=== PATIENT | female | born 1970 | race Caucasian/White ===

== ENCOUNTER 2023-10-25 18:24 | Emergency (ER) | payer OTHER, SELFPAY ==
--- NOTE | ~2023-10-25 | XR_ITS ---
EXAMINATION: XR CHEST CLINICAL INFORMATION: Chest pain COMPARISON: None available. TECHNIQUE: Frontal view of the chest was obtained. FINDINGS: No significant abnormality is noted involving the heart, lungs, mediastinum, bony thorax or soft tissues. XR/XR chest 1V IMPRESSION: Unremarkable chest examination.
--- NOTE | 2023-10-25 18:26 | ECG_ITS ---
Test Reason : abd pain Blood Pressure : / mmHG Vent. Rate : 057 BPM Atrial Rate : 057 BPM P-R Int : 134 ms QRS Dur : 086 ms QT Int : 426 ms P-R-T Axes : 032 026 044 degrees QTc Int : 414 ms Sinus bradycardia Otherwise normal ECG No previous ECGs available Referred By: Jluio Sanchez Electronically Signed By:BRANT ROMERO
--- NOTE | 2023-10-25 18:27 | ED_ITS ---
HPI - General Adult General Chief complaint: Abdominal Pain Stated complaint: left side pain urgent care told patient to come Time Seen by Provider: 10/25/23 22:57 Source: patient, RN notes reviewed and old records reviewed Mode of arrival: ambulatory Limitations: no limitations History of Present Illness HPI narrative: 52-year-old female presents for evaluation abdominal pain. Patient reports she has had abdominal pain on and off for the last few days. The pain is worse with eating. The pain radiates up into her chest She is status post cholecystectomy and gastric bypass She denies any other history abdominal surgeries pain Denies any fevers, chills She continues to pass flatus Currently she has no pain Related Data Allergies Allergy/AdvReac Type Severity Reaction Status Date / Time cefaclor [From [facility]] Allergy Rash Verified 10/25/23 18:37 Sulfa (Sulfonamide Allergy Unknown Verified 10/25/23 18:37 Antibiotics) Review of Systems 2 Constitutional: Constitutional: Denies chills and Denies fever(s) Cardiovascular: Cardiovascular: Reports chest pain Respiratory: Respiratory: Denies cough Gastrointestinal: Gastrointestinal: Reports abdominal pain, Denies nausea and Denies vomiting Genitourinary: Genitourinary: Denies dysmenorrhea Musculoskeletal: Musculoskeletal: Denies back pain Integumentary/Breasts: Skin/Breast: Denies rash PMFSH Social History Social History Advance Directives: No Advance Directives Information Provided: No Physical Exam ED Vital Signs: Vital Signs - 24 hr 10/25/23 18:38 10/25/23 22:06 Temperature 97.7 F 97.7 F Pulse Rate 56 67 Respiratory Rate 18 18 Blood Pressure 151/67 H 155/66 H Pulse Oximetry 99 100 Oxygen Delivery Method Room Air Room Air BMI result Body Mass Index 29.5 Const General: healthy appearing, comfortable, no acute distress, alert and awake Nutritional Appearance: well nourished Orientation/consciousness: patient oriented x3 HENMT Head: Yes normocephalic and Yes atraumatic Eyes Eyelids: Yes eyelids normal Conjunctivae: conjunctivae normal Sclerae: sclerae normal Corneas: corneas normal Pupils: Equal, round and reactive pupils present EOM: EOMs intact bilaterally Neck Neck: Yes full ROM Resp Effort & Inspection: normal respiratory effort, able to speak in complete sentences and not labored GI Inspection: No distended Palpation (GI): Soft to palpation, not firm, nontender, no guarding and not rigid Auscultation: normoactive bowel sounds Skin General skin exam: no rashes or lesions noted and elasticity normal Neuro General: patient oriented x3 Cranial nerves: Yes Equal, round and reactive pupils present and Yes Bilaterally intact EOM present Cognition (Neuro): normal cognition Extrem Other: Moving all extremities well without any obvious deformities Course Course Course Narrative: This is an RME: Additional HPI, ROS, PE not included below will be deferred to primary provider. 52 year old female presents from [facility] MD urgent care w/ L sided cp x 3 days. NO sob, cough, fevers, chills, nausea, vomiting, abd pain Plan- labs, ekg Medical Decision Making Medical Decision Making MDM Narrative: 52-year-old female presents for evaluation abdominal pain worse after eating. She is already status post cholecystectomy and gastric bypass. I have no concern for small bowel obstruction she continues to pass gas. Her abdominal exam is reassuring, she has no current tenderness or distention. She had a chest x-ray does not show any evidence of a hiatal hernia. History, exam are most consistent with GERD/gastritis. The patient be referred to GI as well as General surgery given her history of gastric bypass Differential Diagnosis Differential Diagnoses: The differential diagnosis associated with the presentation includes GERD Gastritis Hiatal hernia Peptic ulcer disease Small bowel obstruction less likely Lab Data [facility] Lab Attestation statement: I reviewed the patient's lab results. No leukocytosis or anemia. No significant electrolyte abnormalities. Patient is chloride is elevated to 109, just above normal. BUN is 21 with a creatinine of 0.90. LFTs within normal limits 10/25/23 19:01 10/25/23 19:01 Labs: Lab Results 10/25/23 10/25/23 Range/Units 19:00 19:01 WBC 6.2 (4.8-10.8) X10*3/uL RBC 4.04 L (4.20-5.50) X10*6/uL Hgb 13.3 (12.0-16.0) g/dl Hct 38.9 (37.0-47.0) % MCV 96.3 (80.0-98.0) fL MCH 32.9 (27.0-33.0) pg MCHC 34.2 (31.0-35.0) g/dl RDW 12.0 (11.0-16.0) % Plt Count 204 (160-400) X10*3/uL MPV 10.3 (9.4-12.3) fL Immature Gran % (Auto) 0.3 (0.0-0.4) % Neut % (Auto) 76.4 H (45-73) % Lymph % (Auto) 17.8 L (20-40) % [place] % (Auto) 4.2 (2-11) % Eos % (Auto) 0.5 (0-4) % Baso % (Auto) 0.8 (0-2) % Lymph # (Auto) 1.1 L (1.2-4.9) X10*3/uL [place] # (Auto) 0.3 (0.1-1.2) X10*3/uL Eos # (Auto) 0.0 (0.0-0.4) X10*3/uL Baso # (Auto) 0.1 (0.0-0.2) X10*3/uL Abs Immat Gran (auto) 0.02 (0.00-0.03) X10*3/uL Absolute Neuts (auto) 4.7 (2.0-8.3) x10*3/uL Absolute Nucleated RBC 0.000 (0.0-0.012) X10*3/uL Nucleated RBC % (auto) 0.0 (0.0-0.2) /100WBC PT 12.3 (11.1-13.3) SEC INR 1.0 (0.9-1.1) Sodium 142 (135-145) mmol/L Potassium 3.6 (3.3-5.1) mmol/L Chloride 109 H (96-108) mmol/L Carbon Dioxide 23 (22-29) mmol/L Anion Gap 14 (12-20) BUN 21 H (9-16) mg/dL Creatinine 0.90 (0.5-1.4) mg/dL Estim Creat Clear Calc 73.0 Estimated GFR > 60 Random Glucose 94 (60-115) mg/dL Calcium 9.6 (8.4-10.2) mg/dL Magnesium 2.2 (1.6-2.6) mg/dL Total Bilirubin 0.4 (0.0-1.0) mg/dL AST 30 (5-31) U/L ALT 28 (0-31) U/L Alkaline Phosphatase 63 (39-117) U/L Troponin I High Sens < 2.7 (<3.5-17.0) ng/L Total Protein 7.0 (6.5-8.0) g/dL Albumin 4.4 (3.5-5.0) g/dL Lipase 31 (8-78) U/L Urine Color Yellow Urine Appearance Clear Urine pH 5.5 (5.0-9.0) Ur Specific [place] 1.015 (1.005-1.025) Urine Protein Negative (Neg-Trace) mg/dL Urine Glucose (UA) Negative (Negative) mg/dL Urine Ketones Trace (Negative) mg/dL Urine Blood Trace H (Negative) Urine Nitrite Negative (Negative) Ur Leukocyte Esterase Negative (Negative) Urine RBC 0-2 (0-2) /HPF Urine WBC 0-5 (0-5) /HPF Ur Squamous Epith Cells 0-2 (0-2) /HPF Urine Bacteria None Seen (None Seen) Hyaline Casts 0-2 (0-2) /LPF Discharge Plan Discharge Clinical Impression: Abdominal pain Patient Disposition: Home, Self-Care Instructions: Abdominal Pain (ED) Additional Instructions: Your workup in the ER today was reassuring. Your blood work did not show any significant abnormalities. Your x-ray did not show any large hiatal hernia I recommend that you follow-up with both GI and General surgery given your history of gastric bypass Referrals are attached, I recommend you call in the morning to schedule follow- up appointments Referrals: Jeffrey Simpson MD [Physician] - (abdominal pain after eating. Hx gastric bypass) Devon Bradshaw MD [Physician] - (upper abdominal pain after eating) Interventions: ED Discharge Assessment Last Done: 10/25/23 23:32 Discharge Date/Time: 10/25/23 23:32
[2023-10-25 18:38] VITALS: BP 151/67; PULSE 56; RESP 18; TEMP 36.5; O2SAT 99; BMI 29.5
[2023-10-25 19:06] LABS: MANUAL DIFF FLAG NO
--- NOTE | 2023-10-25 19:07 | MHC.EDTECH ---
PATIENT EKG TAKEN AND WAS READ BY PROVIDER ,BLOOD DRAWN AND URINE SAMPLE COLLECTED AND SENT TO LAB .
[2023-10-25 19:08] LABS: Basophils Absolute Auto 0.1 X10*3/uL (0.0-0.2); Basophils Percent Auto 0.8 % (0-2); Eosinophils Percent Auto 0.5 % (0-4); Hematocrit 38.9 % (37.0-47.0); Hemoglobin 13.3 g/dl (12.0-16.0); Imm Gran Abs Auto 0.02 X10*3/uL (0.00-0.03); Imm Gran Pct Auto 0.3 % (0.0-0.4); Lymphocytes Absolute Auto 1.1 X10*3/uL (1.2-4.9); Lymphocytes Percent Auto 17.8 % (20-40); Mean Corpuscular HGB Conc 34.2 g/dl (31.0-35.0); Mean Corpuscular Hemoglobin 32.9 pg (27.0-33.0); Mean Corpuscular Volume 96.3 fL (80.0-98.0); Mean Platelet Volume 10.3 fL (9.4-12.3); Monocytes Absolute Auto 0.3 X10*3/uL (0.1-1.2); Monocytes Percent Auto 4.2 % (2-11); Neutrophils Absolute Auto 4.7 x10*3/uL (2.0-8.3); Neutrophils Percent Auto 76.4 % (45-73); Platelet Count 204 X10*3/uL (160-400); Red Blood Count 4.04 X10*6/uL (4.20-5.50); White Blood Count 6.2 X10*3/uL (4.8-10.8)
[2023-10-25 19:09] LABS: Appearance Urine Clear; Color Urine Yellow; Glucose Urine UA Negative (Negative); Leukocyte Esterase Urine Negative (Negative); Nitrite Urine Negative (Negative); PH 5.5 (5.0-9.0); Specific Gravity - Urine 1.015 (1.005-1.025); UMIC TRIGGER UACC YES; Urine Blood Trace (Negative); Urine Ketones Trace mg/dL (Negative); Urine Protein Negative (Neg-Trace)
[2023-10-25 19:14] LABS: Bacteria Urine None Seen (None Seen); Hyaline Casts Urine 0-2 /LPF (0-2); Prothrombin Time 12.3 SEC (11.1-13.3); RBC Urine 0-2 /HPF (0-2); Squamous Epithelial Cell Urine 0-2 /HPF (0-2); WBC Urine 0-5 /HPF (0-5)
[2023-10-25 19:30] LABS: Alanine Aminotransferase 28 U/L (0-31); Albumin Level 4.4 g/dL (3.5-5.0); Alkaline Phosphatase 63 U/L (39-117); Anion Gap 14 (12-20); Aspartate Amino Transferase 30 U/L (5-31); Bilirubin Total 0.4 mg/dL (0.0-1.0); Blood Urea Nitrogen 21 mg/dL (9-16); Calcium 9.6 mg/dL (8.4-10.2); Carbon Dioxide 23 mmol/L (22-29); Chloride 109 mmol/L (96-108); Estimated Glomerular Filt Rate > 60; Glucose Random 94 mg/dL (60-115); Magnesium 2.2 mg/dL (1.6-2.6); Potassium 3.6 mmol/L (3.3-5.1); Sodium 142 mmol/L (135-145)
[2023-10-25 19:41] LABS: Troponin-I High Sensitivity < 2.7 ng/L (<3.5-17.0)
[2023-10-25 22:06] VITALS: BP 155/66; PULSE 67; RESP 18; TEMP 36.5; O2SAT 100
[2023-10-25 23:24] LABS: Lipase 31 U/L (8-78)
== END 2023-10-25 23:32 | disposition home or self-care (01) ==
PROVIDERS: Physician Assistant; Emergency Provider Internal Medicine; PCP Internal Medicine
DX: R10.9 Unspecified abdominal pain (principal); R07.89 Other chest pain; R00.1 Bradycardia, unspecified; Z98.84 Bariatric surgery status; Z79.899 Other long term (current) drug therapy
CPT/HCPCS: 36415; 71045; 80053; 81001; 83690; 83735; 84484; 85025; 85610; 93005; 99283

== ENCOUNTER → 2023-10-25 18:26 | Outpatient (BNV) | payer OTHER, SELFPAY | PROVIDERS: Emergency Provider Internal Medicine; PCP Internal Medicine; Visit Provider Internal Medicine | DX: R00.1 Bradycardia, unspecified (principal) | CPT/HCPCS: 93010 ==

== ENCOUNTER 2023-11-09 17:58 | Emergency (ER) | payer OTHER, SELFPAY ==
--- NOTE | ~2023-11-09 | XR_ITS ---
EXAMINATION: XR CHEST CLINICAL INFORMATION: Unable to take a full breath. COMPARISON: Chest radiograph 10/25/2023. TECHNIQUE: Frontal view of the chest was obtained. FINDINGS: Normal appearance of the cardiomediastinal silhouette. No focal airspace opacities, pleural effusion or pneumothorax. No acute osseous findings. Visualized upper abdomen is within normal limits. XR/XR chest 1V IMPRESSION: No acute cardiopulmonary findings.
[2023-11-09 18:32] VITALS: BP 147/78; PULSE 61; RESP 18; TEMP 36.6; O2SAT 98; BMI 29.8
--- NOTE | 2023-11-09 18:35 | ECG_ITS ---
Test Reason : UPPER ABD PAIN Blood Pressure : / mmHG Vent. Rate : 051 BPM Atrial Rate : 051 BPM P-R Int : 132 ms QRS Dur : 084 ms QT Int : 428 ms P-R-T Axes : 038 030 042 degrees QTc Int : 394 ms Sinus bradycardia Otherwise normal ECG When compared with ECG of 25-OCT-2023 18:50, No significant change was found Referred By: Generic ED Physician Electronically Signed By:AVNI MORAES MD
--- NOTE | 2023-11-09 18:48 | ED_ITS ---
HPI - General Adult General Chief complaint: Abdominal Pain Stated complaint: upper abd pain/can't take a deep breath Time Seen by Provider: 11/09/23 23:02 Source: patient Mode of arrival: ambulatory Limitations: no limitations History of Present Illness HPI narrative: A 52-year-old female s/p gastric bypass came in for evaluation of epigastric pain and unable to take a deep breath. Patient was seen and evaluated in the emergency department 3 weeks ago for epigastric pain that has been constant for the past 3 weeks patient is scheduled to have upper endoscopy by Dr. Simspon in the next 2 weeks, patient was concerned today because she was not able to take a full breath, but no SOB, no coughing, no fever, chills. No lower extremity swelling or tenderness, no history of DVT or PE. Related Data Allergies Allergy/AdvReac Type Severity Reaction Status Date / Time cefaclor [From Ceclor] Allergy Rash Verified 10/25/23 18:37 Sulfa (Sulfonamide Allergy Unknown Verified 10/25/23 18:37 Antibiotics) Review of Systems 2 Review of Systems: All other systems are reviewed and are negative Constitutional: Reports as per HPI and Reports no additional constitutional complaints Eyes: Reports as per HPI and Reports no additional eye complaints Reports system reviewed and no additional complaints, except as documented Cardiovascular: Reports as per HPI and Reports no additional cardiovascular complaints Respiratory: Reports as per HPI and Reports no additional respiratory complaints Gastrointestinal: Reports as per HPI and Reports no additional gastrointestinal complaints Genitourinary: Reports no additional female genitourinary complaints Musculoskeletal: Reports no additional musculoskeletal complaints Skin/Breast: Reports system reviewed and no additional complaints, except as docu Psychiatric: Reports no additional psychiatric complaints Endocrine: Reports no additional endocrine complaints Hematologic/Lymphatic: Reports no additional hematologic/lymphatic complaints Allergic/Immunologic: Reports no additional allergic/immunologic complaints Reports system reviewed and no additional complaints, except as documented and Reports Abnormal speech present [facility] Social History Social History Smoked in Last 30 Days: No Use of substances other than those prescribed or required for medical reasons: No Advance Directives: No Advance Directives Information Provided: No Patient : No Physical Exam ED Vital Signs: Vital Signs - 24 hr 11/09/23 18:32 11/09/23 23:15 11/10/23 00:00 Temperature 97.8 F Pulse Rate 61 61 62 Respiratory Rate 18 18 18 Blood Pressure 147/78 H 159/67 H 162/62 H Pulse Oximetry 98 100 98 Oxygen Delivery Method Room Air Room Air 11/10/23 00:45 Temperature Pulse Rate 61 Respiratory Rate 18 Blood Pressure 147/66 H Pulse Oximetry 100 Oxygen Delivery Method BMI result Body Mass Index 29.8 Vital signs have been reviewed and appear to be correct. Blood pressure elevated. Heart rate normal. Respiratory rate normal. Temperature normal. Oxygen saturation normal. Appearance: Alert. Oriented X3. No acute distress. Head: Normal external exam. Normocephalic. Atraumatic. No Castro signs noted. No raccoon eyes noted Eyes: PERRLA. EOMI. Conjunctiva and sclera normal. Eyelids normal. ENT: TM's Normal. Pharynx normal. Uvula midline. Moist mucous membranes. No trismus noted. No drooling noted. No muffled voice noted. Neck: Normal inspection. Neck supple. FROM. No adenopathy. Thyroid Normal. No meningeal signs. No neck mass noted. CVS: Normal heart rate and rhythm. Heart sound normal. No murmurs noted. Pulses normal throughout. Respiratory: No respiratory distress. Painless inspiration. Breath sounds normal. No wheezes/rales/rhonchi noted. Chest nontender. No accessory muscle usage noted or decreased air movement noted. Abdomen: Soft and nontender. Bowel sounds normal in all 4 quadrants. No distention noted. No organomegaly noted. No visible injury noted. Back: No CVA tenderness. Full range of motion noted. Skin: Skin warm and dry. Normal skin color. Normal skin turgor. No rashes/lesions/lacerations noted. Extremities: No lower extremity edema. Extremities exhibit normal range of motion. Extremities nontender. Neuro: Oriented X 3. Cranial nerve exam: II-XII are grossly intact No motor deficit. No sensory deficit. Reflexes normal. Course Course Course Narrative: [place]; 52-year-old female presents to ED for epigastric abdominal pain for the past 3 weeks described as pressure. Patient has endoscopic due in 2 weeks. Patient history of gastric bypass. Not reproducible on palpation. EKG labs ordered. Reevaluation(s) Reevaluation #1: Came in today for evaluation of unable to take a full breath that this resolved now patient was VSS, no risk for DVT or PE with negative D-dimer. Patient's exam is unremarkable patient was instructed to follow-up with Dr. Simpson for her upper endoscopy that is scheduled in 2 weeks. Time: 23:44 Medical Decision Making Differential Diagnosis Differential Diagnoses: The differential diagnosis associated with the presentation includes (Pulmonary embolism, pneumonia, pneumothorax, pleural effusion, electrolyte abnormality, severe anemia.) Admission/Observation Consideration of admission/observation: Escalation of care including admission/observation considered Lab Data MDM Lab Attestation statement: I reviewed the patient's lab results. 11/09/23 18:45 11/09/23 18:45 Labs: Lab Results 11/09/23 11/09/23 Range/Units 18:45 19:48 WBC 5.4 (4.8-10.8) X10*3/uL RBC 4.00 L (4.20-5.50) X10*6/uL Hgb 13.3 (12.0-16.0) g/dl Hct 38.2 (37.0-47.0) % MCV 95.5 (80.0-98.0) fL MCH 33.3 H (27.0-33.0) pg MCHC 34.8 (31.0-35.0) g/dl RDW 11.9 (11.0-16.0) % Plt Count 214 (160-400) X10*3/uL MPV 10.2 (9.4-12.3) fL Immature Gran % (Auto) 0.2 (0.0-0.4) % Neut % (Auto) 70.4 (45-73) % Lymph % (Auto) 20.4 (20-40) % [place] % (Auto) 7.6 (2-11) % Eos % (Auto) 0.7 (0-4) % Baso % (Auto) 0.7 (0-2) % Lymph # (Auto) 1.1 L (1.2-4.9) X10*3/uL [place] # (Auto) 0.4 (0.1-1.2) X10*3/uL Eos # (Auto) 0.0 (0.0-0.4) X10*3/uL Baso # (Auto) 0.0 (0.0-0.2) X10*3/uL Abs Immat Gran (auto) 0.01 (0.00-0.03) X10*3/uL Absolute Neuts (auto) 3.8 (2.0-8.3) x10*3/uL Absolute Nucleated RBC 0.000 (0.0-0.012) X10*3/uL Nucleated RBC % (auto) 0.0 (0.0-0.2) /100WBC PT 12.2 (11.1-13.3) SEC INR 1.0 (0.9-1.1) APTT 31.1 (26.0-36.8) SEC D-Dimer High Sensitivty < 150 NG/ML Sodium 144 (135-145) mmol/L Potassium 3.5 (3.3-5.1) mmol/L Chloride 110 H (96-108) mmol/L Carbon Dioxide 24 (22-29) mmol/L Anion Gap 14 (12-20) BUN 20 H (9-16) mg/dL Creatinine 0.91 (0.5-1.4) mg/dL Estim Creat Clear Calc 70.0 Estimated GFR > 60 Random Glucose 107 (60-115) mg/dL Calcium 9.6 (8.4-10.2) mg/dL Total Bilirubin 0.5 (0.0-1.0) mg/dL Direct Bilirubin 0.2 (0.0-0.5) mg/dL AST 24 (5-31) U/L ALT 20 (0-31) U/L Alkaline Phosphatase 54 (39-117) U/L Troponin I High Sens < 2.7 (<3.5-17.0) ng/L Total Protein 7.0 (6.5-8.0) g/dL Albumin 4.4 (3.5-5.0) g/dL Lipase 32 (8-78) U/L Independent Interpretation I performed an independent interpretation of an: Plain X-Ray (Chest: No acute intrathoracic pathology.) Discharge Plan Discharge Clinical Impression: Abdominal pain Patient Disposition: Home, Self-Care Instructions: Abdominal Pain (ED) Referrals: Abhilash Welsh MD [Primary Care Provider] - Interventions: ED Discharge Assessment Last Done: 11/10/23 00:46 Discharge Date/Time: 11/10/23 00:46
[2023-11-09 18:51] LABS: MANUAL DIFF FLAG NO
[2023-11-09 19:13] LABS: Alanine Aminotransferase 20 U/L (0-31); Albumin Level 4.4 g/dL (3.5-5.0); Alkaline Phosphatase 54 U/L (39-117); Anion Gap 14 (12-20); Aspartate Amino Transferase 24 U/L (5-31); Bilirubin Direct 0.2 mg/dL (0.0-0.5); Bilirubin Total 0.5 mg/dL (0.0-1.0); Blood Urea Nitrogen 20 mg/dL (9-16); Calcium 9.6 mg/dL (8.4-10.2); Carbon Dioxide 24 mmol/L (22-29); Chloride 110 mmol/L (96-108); Estimated Glomerular Filt Rate > 60; Glucose Random 107 mg/dL (60-115); Lipase 32 U/L (8-78); Potassium 3.5 mmol/L (3.3-5.1); Sodium 144 mmol/L (135-145)
[2023-11-09 19:21] LABS: Basophils Percent Auto 0.7 % (0-2); Eosinophils Percent Auto 0.7 % (0-4); Hematocrit 38.2 % (37.0-47.0); Hemoglobin 13.3 g/dl (12.0-16.0); Imm Gran Abs Auto 0.01 X10*3/uL (0.00-0.03); Imm Gran Pct Auto 0.2 % (0.0-0.4); Lymphocytes Absolute Auto 1.1 X10*3/uL (1.2-4.9); Lymphocytes Percent Auto 20.4 % (20-40); Mean Corpuscular HGB Conc 34.8 g/dl (31.0-35.0); Mean Corpuscular Hemoglobin 33.3 pg (27.0-33.0); Mean Corpuscular Volume 95.5 fL (80.0-98.0); Mean Platelet Volume 10.2 fL (9.4-12.3); Monocytes Absolute Auto 0.4 X10*3/uL (0.1-1.2); Monocytes Percent Auto 7.6 % (2-11); Neutrophils Absolute Auto 3.8 x10*3/uL (2.0-8.3); Neutrophils Percent Auto 70.4 % (45-73); Platelet Count 214 X10*3/uL (160-400); Red Cell Distribution Width 11.9 % (11.0-16.0); White Blood Count 5.4 X10*3/uL (4.8-10.8)
[2023-11-09 19:38] LABS: Troponin-I High Sensitivity < 2.7 ng/L (<3.5-17.0)
[2023-11-09 20:10] LABS: Prothrombin Time 12.2 SEC (11.1-13.3)
[2023-11-09 20:12] LABS: Partial Thromboplastin Time 31.1 SEC (26.0-36.8)
--- OUTSIDE RECORDS SUMMARY | 2023-11-09 23:07 | XMS_ITS | Continuity of Care Document ---
Author Name Unknown Organization [facility] ter Address [address] [place] [address]- Care Team Providers Care Director Of Product Marketing Name Role Phone Abhilash Welsh MD Primary Care Physician Encounter [facility] [place] Date(s): 09/18/19 - 09/18/[address] [address]- [facility] Attending Physician: Linda Camejo MD Allergies, Adverse Reactions, Alerts Substance Reaction Severity Status sulfADIAZINE Rash Moderate Active sulfa drugs UNKNOWN REACTION Active Ceclor Rash Moderate Active Medications Vitamin D 400 iu oral tablet 400, International_Units, 1, tablet, By Mouth, 2 times a day, 120, tablet, 7, 7, 07/09/06 12:22:20,Print THO Number, ADS OPPTHS, [id number]+[id number], Constant Indicator Start Date: 07/09/06 Stop Date: 11/01/07 Status: Ordered
--- OUTSIDE RECORDS SUMMARY | 2023-11-09 23:07 | XMS_ITS | Continuity of Care Document ---
Author Name Unknown Organization [facility] ter Address [address] [place] [address]- Care Team Providers Care Php Website Developer Name Role Phone Abhilash Welsh MD Primary Care Physician Encounter [facility] [place] Date(s): 09/01/23 - 09/02/[address] [address]- Discharge Disposition: A-D/C Walkout Attending Physician: Not on Staff, Attending MD Admitting Physician: Not on Staff, Admitting MD Referring Physician: Not on Staff, Referring MD Allergies, Adverse Reactions, Alerts Substance Reaction Severity Status sulfADIAZINE Rash Moderate Active sulfa drugs UNKNOWN REACTION Active Ceclor Rash Moderate Active Medications Vitamin D 400 iu oral tablet 400, International_Units, 1, tablet, By Mouth, 2 times a day, 120, tablet, 7, 7, 07/09/06 12:22:20,Print THO Number, ADS OPPTHS, [id number], Constant Indicator Start Date: 07/09/06 Stop Date: 11/01/07 Status: Ordered Vital Signs Most recent to oldest [Reference Range]: 1 2 3 Height 163 cm (09/01/23 9:01 PM) Weight 77.5 kg (09/01/23 9:01 PM) Oxygen Saturation [94-100 %] 100 % (09/01/23 9:01 PM) 98 % (09/01/23 7:42 PM) Pulse Rate [55-90 bpm] 55 bpm (09/02/23 1:23 AM) 59 bpm (09/01/23 9:01 PM) 76 bpm (09/01/23 7:42 PM) Body Mass Index [18.5-24.99 kg/m2] 29.17 kg/m2 *H* (09/01/23 9:01 PM) Blood Pressure [90-138/55-84 mm Hg] 139/81mm Hg *H* (09/02/23 1:23 AM) 147/85mm Hg *H* (09/01/23 9:01 PM) Temperature [96.8-100.4 DegF] 97.7 DegF (09/02/23 1:23 AM) 97.8 DegF (09/01/23 9:01 PM) Mode of Delivery (Oxygen) Room air (09/01/23 9:01 PM) Room air (09/01/23 7:42 PM) Blood pressure sites Arm, left (09/02/23 1:23 AM) Arm, left (09/01/23 9:01 PM) Temperature Route Oral (09/02/23 1:23 AM) Oral (09/01/23 9:01 PM) Dry Weight 77.5 kg (09/01/23 9:01 PM) Weight Obtained Via Standing scale (09/01/23 9:01 PM) Dry Weight Obtained Via Standing scale (09/01/23 9:01 PM) EKG study * Event Display: ECG 12-Lead Authored Date: Please click on pdf link to open report * Event Display: ECG 12-Lead Authored Date: Ventricular Rate: 57 BPM Atrial Rate: 57 BPM P-R Interval: 110 ms QRS Duration: 68 ms Q-T Interval: 412 ms QTC Calculation(Bazett): 401 ms P [place]: 10 degrees R [place]: 25 degrees T [place]: 42 degrees Sinus bradycardia Otherwise normal ECG When compared with ECG of 15-JAN-2023 09:04, No significant change was found Confirmed by LORI SUNG ([id number]) on 09/02/2023 8:22:58 AM [place]: LORI SUNG Patient Care team information Care Team Personnel Name: Abhilash Welsh MD Position: S Physician - Primary Care Member Role: PCP Address: Address: [address] [place] [address] Care Team Related Persons Name: RENAN ESPOSITO Name: WHITNEY ENGLAND Address: [address] [place] [address] Name: DANIEL ENGLAND Address: [address] [place] [address]
--- OUTSIDE RECORDS SUMMARY | 2023-11-09 23:07 | XMS_ITS | Continuity of Care Document ---
Author Name Unknown Organization [facility] Address [address] [place] [address], [address] [place] [address]- Care Team Providers Care Physician Obstetrician Name Role Phone Abhilash Welsh MD Primary Care Physician Encounter [facility] [place] Date(s): 10/14/23 - 10/21/[address], [address] [place], [place] [address] Attending Physician: Yari Moraes MD Referring Physician: Abhilash Welsh MD Allergies, Adverse Reactions, Alerts Substance Reaction Severity Status sulfADIAZINE Rash Moderate Active sulfa drugs UNKNOWN REACTION Active Ceclor Rash Moderate Active Medications Flonase = 50 mcg, Daily, 0 Refills, Maintenance, 10/14/23 15:05:00 EST, Partial fill upon patient request if the prescription is for a schedule II opioid drug. Start Date: 10/14/23 Status: Ordered Vitamin D 400 iu oral tablet 400, International_Units, 1, tablet, By Mouth, 2 times a day, 120, tablet, 7, 7, 07/09/06 12:22:20,Print THO Number, ADS OPPTHS, [id number]+[id number], Constant Indicator Start Date: 07/09/06 Stop Date: 11/01/07 Status: Ordered Vital Signs Most recent to oldest [Reference Range]: 1 Height 163 cm (10/14/23 3:02 PM) Weight 77.5 kg (10/14/23 3:02 PM) Body Mass Index [18.5-24.99 kg/m2] 29.17 kg/m2 *H* (10/14/23 3:02 PM) Laboratory * Event Display: Non BH Lab Results Authored Date: Radiology * Event Display: MRI Head, Non- BH Authored Date: * Event Display: MRI Head, Non- BH Authored Date: [id number] Patient Care team information Care Team Personnel Name: Abhilash Welsh MD Position: [facility] Physician - Primary Care Member Role: PCP Address: Address: [address] [place] [address] Care Team Related Persons Name: RENAN ESPOSITO Name: WHITNEY ENGLAND Address: [address] [place] [address] Name: DANIEL ENGLAND Address: [address] [place] [address]
--- OUTSIDE RECORDS SUMMARY | 2023-11-09 23:07 | XMS_ITS | Patient Health Record ---
Author Name Unknown [facility] Address [address] [place] [address] Care Team Providers Care Dock Manager Name Role Phone Abhilash Welsh MD Primary Care Provider UnavailTeresa Holt Unavailable [phone] ALLERGIES Allergen (clinical drug ingredient) Drug/Non Drug Allergy documented on EMR Reaction Allergy Type Onset Date Status sulfamethoxazole / trimethoprim Bactrim Unknown Drug Allergy Active cefuroxime Ceftin rash Drug Allergy Active cefaclor Cefaclor rash Drug Allergy Active REASON FOR REFERRAL No Information MEDICATIONS Medication SIG (Take, Route, Fr equency, Duration) Notes Start Date End Date Status calcium Active Multivitamin Adult - as directed Orally Active Antihistamine Active Iron 325 (65 Fe) MG 1 tablet Orally Once a day for 30 day(s) Active Vitamin D 1000 UNIT 1 tablet Orally Once a day for 30 day(s) Active SOCIAL HISTORY Tobacco Use: Social History Observation Description Date Details (start date - stop date) Never Smoker NA - NA Sex Assigned At : Social History Observation Description Sex Assigned At Unknown Tobacco Use/Smoking Question Answer Notes Are you a: nonsmoker Additional Findings: Tobacco Non-User Current no n-smoker Alcohol Screen Question Answer Notes Did you have a drink containing alcohol in the p ast year? Yes Points 0 Interpretation Negative Tobacco use other than smoking: Question Answer Notes Are you an other tobacco user? No PROBLEMS Problem Type ICD Code Onset Dates Problem Status W/U Status Risk SNOMED Code Notes Problem Plantar neuroma of right foot (G57.61) Active confirmed 108503572 PLAN OF TREATMENT Pending Test Test Name Order Date X ray : Foot, right 3V 10/30/2020 X ray : Foot, right 3V 02/17/2019 [id number] TENDON SHEATH/LIGAMENT 0 11/27/2020 [id number], [id number]- Neuroma/Injection 03/10/20 19 Insurance Providers Payer Name Payer Address Payer Phone Subscriber Number Group Number Insured Name Patient Relationship to Insured Coverage Start Date Coverage End Date [employer] [address] [place] [address] [id number] Sheryl Barajas Self - patient is the insured 9 MEDICAL (GENERAL) HISTORY Medical History History ICD Code Gall bladder problems Chicken pox Surgical History Surgery Date(Month/Year) gastric bypass 05/2004 cholecystectomy 05/2004 lasik 08/2005 bunionectomy 02/2014 tonsillectomy 1976 colonoscopy 09/08
--- OUTSIDE RECORDS SUMMARY | 2023-11-09 23:07 | XMS_ITS | Continuity of Care Document ---
Author Name Unknown Organization [facility] ter Address [address] [place] [id number]- Care Team Providers Care Feather Baler Name Role Phone Abhilash Welsh MD Primary Care Physician Encounter [facility] Date(s): 01/15/23 - 01/15/[address] [address]- Encounter Diagnosis Breast pain(Final) - 01/15/23 Discharge Disposition: A-D/C Home Attending Physician: Ismael Ayala MD Admitting Physician: Ismael Ayala MD Referring Physician: Not on Staff, Referring MD Allergies, Adverse Reactions, Alerts Substance Reaction Severity Status sulfADIAZINE Rash Moderate Active sulfa drugs UNKNOWN REACTION Active Ceclor Rash Moderate Active Medications Vitamin D 400 iu oral tablet 400, International_Units, 1, tablet, By Mouth, 2 times a day, 120, tablet, 7, 7, 07/09/06 12:22:20,Print THO Number, ADS OPPTHS, [id number], Constant Indicator Start Date: 07/09/06 Stop Date: 11/01/07 Status: Ordered Results Radiology Reports * Exam Date Time Procedure Performing Provider Status 01/15/23 11:48 AM US Doppler Ext Upper Venous Right Jourdan Emery; Auth (Verified) Notes: (US Doppler Ext Upper Venous Right) Reason For Exam: Pain in limb;Other: RESULT: US Doppler Ext Upper Venous Right US Doppler Ext Upper Venous Right Hx of Present Illness: 2 weeks [employer] burning pain R breast radiating under L arm. Patient seen by PCP; Pain in limb; Clinical Question(s): Thrombosis COMPARISON: None. IMAGING TECHNIQUE: Ultrasound examination of the upper extremity deep venous system was performed using grayscale, color, and spectral wave analysis including response to compression. Assessment includes the contralateral jugular and subclavian vein. FINDINGS: Internal jugular vein: Patent. No thrombosis. Subclavian vein: Patent. No thrombosis. Axillary vein: Patent. No thrombosis. Brachial vein: Patent. No thrombosis. Basilic vein: Patent. No thrombosis. Cephalic vein: Patent. No thrombosis. Contralateral internal jugular vein: Patent. No thrombosis. Contralateral subclavian vein: Patent. No thrombosis. IMPRESSION: No evidence of venous thrombosis. WSN: [id number] Ordering Physician: Jerry Berrios Dictated By: Gregory Hodges MD Dictated Date/Time: 01/15/23 12:05 p Reviewed By: Gregory Hodges MD Signed By: Gregory Hodges MD Signed Date/Time: 01/15/23 12:05 pm Transcribed By: DIEGO Transcribed Date/Time: 01/15/23 12:04 pm * Exam Date Time Procedure Performing Provider Status 01/15/23 11:03 AM Chest Portable Cira De Santiago; Auth (Verified) Notes: (Chest Portable) Reason For Exam: Shortness of Breath RESULT: Chest Portable Chest Portable HX OF PRESENT ILLNESS: 2 weeks burning pain R breast radiating under L arm; Reason: Shortness of Breath; Clinical Question(s): CHF COMPARISON: None. FINDINGS: LINES AND TUBES: None. LUNGS AND PLEURA: Clear lungs. Normal pulmonary vascularity. No pleural effusion. No pneumothorax. HEART, MEDIASTINUM AND TRAMAINE: Heart is normal in size. Normal mediastinal and hilar contour. BONES AND SOFT TISSUES: No acute abnormality. IMPRESSION: No acute abnormality. I have personally reviewed the images and I agree with this report. WSN: [id number] Ordering Physician: Jerry Berrios Dictated By: Nereida Escalona DO Dictated Date/Time: 01/15/23 11:27 a Reviewed By: Partha Moore MD Signed By: Partha Moore MD Signed Date/Time: 01/15/23 11:32 am Transcribed By: DIEGO Transcribed Date/Time: 01/15/23 11:12 am Vital Signs Most recent to oldest [Reference Range]: 1 2 3 Height 163 cm (01/15/23 12:02 PM) 163 cm (01/15/23 8:14 AM) Weight 78 kg (01/15/23 12:02 PM) 78 kg (01/15/23 8:14 AM) Oxygen Saturation [94-100 %] 100 % (01/15/23 12:02 PM) 100 % (01/15/23 10:18 AM) 100 % (01/15/23 8:44 AM) Pulse Rate [55-90 bpm] 59 bpm (01/15/23 12:02 PM) 67 bpm (01/15/23 10:18 AM) 69 bpm (01/15/23 8:44 AM) Body Mass Index [18.5-24.99 kg/m2] 29.36 kg/m2 *H* (01/15/23 12:02 PM) Blood Pressure [90-138/55-84 mm Hg] 119/56mm Hg (01/15/23 12:02 PM) 117/63mm Hg (01/15/23 10:18 AM) 150/72mm Hg *H* (01/15/23 8:44 AM) Respiratory Rate [16-30 br/min] 16 br/min (01/15/23 12:02 PM) 16 br/min (01/15/23 10:18 AM) 16 br/min (01/15/23 8:44 AM) Temperature [96.8-100.4 DegF] 98.1 DegF (01/15/23 12:02 PM) 97.6 DegF (01/15/23 8:44 AM) 98.2 DegF (01/15/23 8:14 AM) Mode of Delivery (Oxygen) Room air (01/15/23 12:02 PM) Room air (01/15/23 10:18 AM) Room air (01/15/23 8:44 AM) Blood pressure sites Arm, left (01/15/23 12:02 PM) Arm, left (01/15/23 10:18 AM) Arm, left (01/15/23 8:44 AM) Temperature Route Oral (01/15/23 12:02 PM) Oral (01/15/23 8:44 AM) Oral (01/15/23 8:14 AM) Dry Weight 78 kg (01/15/23 12:02 PM) 78 kg (01/15/23 8:14 AM) EKG study * Event Display: ECG 12-Lead Authored Date: Please click on pdf link to open report * Event Display: ECG 12-Lead Authored Date: Ventricular Rate: 57 BPM Atrial Rate: 57 BPM P-R Interval: 124 ms QRS Duration: 88 ms Q-T Interval: 412 ms QTC Calculation(Bazett): 401 ms P [place]: 6 degrees R [place]: 40 degrees T [place]: 40 degrees Sinus bradycardia Otherwise normal ECG When compared with ECG of 22-MAY-2004 14:11, No significant change was found Confirmed by CHERYL MCLAUGHLIN ([id number]) on 01/15/2023 10:13:30 AM [place]: CHERYL MCLAUGHLIN * Event Display: EKG Authored Date: [id number] Portable XR Chest Views * [facility] , CIS S: TRANSCPartha Carrillo MD: VERIFY Nerieda Escalona DO: SIGN Event Display: Result: Authored Date: [id number] Chest Portable HX OF PRESENT ILLNESS: 2 weeks burning pain R breast radiating under L arm; Reason: Shortness of Breath; Clinical Question(s): CHF COMPARISON: None. FINDINGS: LINES AND TUBES: None. LUNGS AND PLEURA: Clear lungs. Normal pulmonary vascularity. No pleural effusion. No pneumothorax. HEART, MEDIASTINUM AND TRAMAINE: Heart is normal in size. Normal mediastinal and hilar contour. BONES AND SOFT TISSUES: No acute abnormality. IMPRESSION: No acute abnormality. I have personally reviewed the images and I agree with this report. WSN: [id number] Ordering Physician: Jerry Berrios Dictated By: Nereida Escalona DO Dictated Date/Time: 01/15/23 11:27 a Reviewed By: Partha Moore MD Signed By: Partha Moore MD Signed Date/Time: 01/15/23 11:32 am Transcribed By: DIEGO Transcribed Date/Time: 01/15/23 11:12 am Note * [facility] , CIS S: Gregory Negron MD: VERIFY Event Display: Result: Authored Date: [id number] US Doppler Ext Upper Venous Right Hx of Present Illness: 2 weeks [employer] burning pain R breast radiating under L arm. Patient seen by PCP; Pain in limb; Clinical Question(s): Thrombosis COMPARISON: None. IMAGING TECHNIQUE: Ultrasound examination of the upper extremity deep venous system was performed using grayscale, color, and spectral wave analysis including response to compression. Assessment includes the contralateral jugular and subclavian vein. FINDINGS: Internal jugular vein: Patent. No thrombosis. Subclavian vein: Patent. No thrombosis. Axillary vein: Patent. No thrombosis. Brachial vein: Patent. No thrombosis. Basilic vein: Patent. No thrombosis. Cephalic vein: Patent. No thrombosis. Contralateral internal jugular vein: Patent. No thrombosis. Contralateral subclavian vein: Patent. No thrombosis. IMPRESSION: No evidence of venous thrombosis. WSN: [id number] Ordering Physician: Jerry Berrios Dictated By: Gregory Hodges MD Dictated Date/Time: 01/15/23 12:05 p Reviewed By: Gregory Hodges MD Signed By: Gregory Hodges MD Signed Date/Time: 01/15/23 12:05 pm Transcribed By: DIEGO Transcribed Date/Time: 01/15/23 12:04 pm Patient Care team information Care Team Personnel Name: Abhilash Welsh MD Position: [facility] Physician (General Medicine) Member Role: PCP Address: Address: [address] [place] [id number] [[email or web address]] Name: Lashae Del Toro Position: [facility] ED RN W/OE and Tasks Member Role: Patient Care Provider Name: Ismael Ayala MD Position: [facility] ED Medicine MD Member Role: Admitting Physician Address: Address: [address] [place] [id number]- Name: Jerry Berrios DO Position: [facility] Resident Member Role: ED Resident Address: Address: [address] [place] [id number]- Name: Radha Moreno Position: [facility] ED [facility] Member Role: Financial Administrator Care Team Related Persons Name: RENAN ESPOSITO Name: LASHAE ENGLAND Address: [address] [place] [address] Name: DANIEL ENGLAND Address: [address] [place] [address]
[2023-11-09 23:15] VITALS: BP 159/67; PULSE 61; RESP 18; O2SAT 100
[2023-11-09 23:46] LABS: D Dimer High Sensitivity < 150 NG/ML
[2023-11-10] VITALS: BP 162/62; PULSE 62; RESP 18; O2SAT 98
[2023-11-10 00:45] VITALS: BP 147/66; PULSE 61; RESP 18; O2SAT 100
== END 2023-11-10 00:46 | disposition home or self-care (01) ==
PROVIDERS: Physician Assistant; Emergency Provider Emergency Medicine; PCP Internal Medicine
DX: R10.13 Epigastric pain (principal); R06.02 Shortness of breath; R00.1 Bradycardia, unspecified; Z98.84 Bariatric surgery status; Z79.899 Other long term (current) drug therapy
CPT/HCPCS: 36415; 71045; 80053; 82248; 83690; 84484; 85025; 85379; 85610; 85730; 93005; 99284; 99285

== ENCOUNTER → 2023-11-09 18:35 | Outpatient (BNV) | payer OTHER, SELFPAY | PROVIDERS: Emergency Provider Emergency Medicine; PCP Internal Medicine; Visit Provider Internal Medicine Cardiovascular Disease | DX: R00.1 Bradycardia, unspecified (principal) | CPT/HCPCS: 93010 ==

== ENCOUNTER 2023-11-17 06:04 | Day surgery (SDC) | payer OTHER, SELFPAY ==
--- NOTE | 2023-11-16 09:51 | P.CONAN_ITS ---
Documented by User: Zoya Ricardo NP 11/16/23 09:55 HPI - Anesthesia Eval Consult details Narrative: 52yo F for Upper Endoscopy No bariatric office visit/eval. No medical hx provided by bariatric office. Per ED notes, hx of gastric sleeve at other facility, unknown date. [facility] Surgical History Surgical History Hx of LASIK History of bunionectomy History of cholecystectomy History of tonsillectomy Hx of gastric bypass Social History Social History Patient Tobacco Use Status: Never used Tobacco Use of substances other than those prescribed or required for medical reasons: No Are you DNR?: No Advance Directives: No Advance Directives Information Provided: Yes Meds Allergies Allergy/AdvReac Type Severity Reaction Status Date / Time cefaclor [From Ceclor] Allergy Rash Verified 10/25/23 18:37 Sulfa (Sulfonamide Allergy Unknown Verified 10/25/23 18:37 Antibiotics) Exam Pertinent Lab Results Pertinent Lab Results: Laboratory Tests 11/09/23 18:45 WBC 5.4 Hgb 13.3 Hct 38.2 Plt Count 214 Sodium 144 Potassium 3.5 Chloride 110 H Carbon Dioxide 24 BUN 20 H Creatinine 0.91 Assessment and Plan Assessment Anesthesia Assessment: Chart Reviewed Documented by User: Rhonda Eldridge MD 11/17/23 08:03 HPI - Anesthesia Eval Consult details Narrative: 52yo F for Upper Endoscopy No bariatric office visit/eval. No medical hx provided by bariatric office. Hx of sleeve gastrectomy at another facility about 12 years ago. C/o epigastric pain. [facility] Active Problems Active Problems: Denies cardiac or respiratory history. Family History Family history of problems with anesthesia: No Surgical History Surgical History Hx of LASIK History of bunionectomy History of cholecystectomy History of tonsillectomy Hx of gastric bypass History of Problems with Anesthesia: No Social History Social History Patient Tobacco Use Status: Never used Tobacco Use of substances other than those prescribed or required for medical reasons: No Are you DNR?: No Advance Directives: No Advance Directives Information Provided: Yes Meds Allergies Allergy/AdvReac Type Severity Reaction Status Date / Time cefaclor [From Ceclor] Allergy Rash Verified 10/25/23 18:37 Sulfa (Sulfonamide Allergy Unknown Verified 10/25/23 18:37 Antibiotics) Exam Height,Weight and Vital Signs: Height 5 ft 4 in Weight 76.43 kg Vital Signs Temp Pulse Resp BP Pulse Ox O2 Del Method 11/17/23 06:23 99.6 F 55 16 129/64 99 Room Air Airway Mallampati Class: II TM Dist: >3cm Neck ROM: Full Loose/Missing/Broken Teeth: No (Denies broken, loose, missing teeth) Heart: RRR Lungs: CTAB Assessment and Plan Assessment Anesthesia Assessment: Anesthesia Plan Discussed and Chart Reviewed Final Anesthetic Review Family History of Problems with Anesthesia: No History of Problems with Anesthesia: No NPO: Yes ASA Class: II Final Preanesthetic Review: No Changes in Pt Med Stat, Meds/Allgs Chart Reviewed, Consent Obtained/Reviewed and Anes Risks/Benef Reviewed Patient Risk: Low Procedure Risk: Low Assessment/Block/Sedation in SS: Assess/Block/Sedation-SS Anesthetic Plan Anesthetic Plan: TIVA Disposition: Standard PACU
[2023-11-17 06:15] VITALS: BMI 28.9
[2023-11-17 06:23] VITALS: BP 129/64; PULSE 55; RESP 16; TEMP 37.6; O2SAT 99
[2023-11-17] MEDS: Lactated Ringers 1,000 ML 100 ML IVCONT (06:40)
--- NOTE | 2023-11-17 07:28 | MHC.SHP ---
Pre-Procedural Eval Section A - 24 Hr Update-Section A only Date of Service: 11/17/23 The patient is an INPATIENT: No Section B - Complete if H&P > 30 days Chief Complaint: Left lower quadrant pain Details of Present Illness: Epigastric pain Relevant Family History (Specify if Yes): No Relevant Social History: None Present Medications: None Medical History: No relevant PMH History of Previous Operations: Relevant previous surgery/procedure and date(s) (laparoscopic gastric bypass) Allergies: Allergies Allergy/AdvReac Type Severity Reaction Status Date / Time cefaclor [From Ceclor] Allergy Rash Verified 10/25/23 18:37 Sulfa (Sulfonamide Allergy Unknown Verified 10/25/23 18:37 Antibiotics) Review of Systems Sugical H&P ROS: Negative: Constitution, Cardiovascular, Respiratory, Neurological, Psychiatric, Hem-Onc, Allergic/Immunologic, Genitourinary, Musculoskeletal, Integumentary, Endocrine and Eyes/Ears/Nose/Throat and Yes, Specify: Gastrointestinal (Epigastric pain) Exam Surgical H&P Exam: Normal: HEENT, Normal: Heart, Normal: Lungs, Normal: Extremities, Normal: Abdomen, Normal: Skin and Normal: Neurological Plan Diagnosis/Plan: Unchanged (EGD to assess the GJ anastomosis to rule out an anastomotic ulcer. Risks and complications of bleeding and perforation were discussed. Patient understands and agrees with the plan.) I have reviewed the history and physical and performed a pertinent physical examination on my patient. No changes have occurred unless specified. Time Spent With Patient Time: Total time managing care of this patient today ____ minutes.
--- NOTE | 2023-11-17 07:53 | PM.OP ---
Brief Operative Note Date of Service: 11/17/23 Pre-op diagnosis: Left upper quadrant pain Post-op diagnosis: same (Multiple superficial anastomotic ulcers) Procedure: PROCEDURE DATE: ?11/17/23 PREOPERATIVE DIAGNOSIS: Epigastric pain, s/p gastric bypass POSTOPERATIVE DIAGNOSIS: ?Same as above. 1) Multiple superficial anastomotic ulcers PROCEDURE: [id number] with biopsy Surgeon: ?Jamie Simpson M.D.. Ph.D. Brand Ambassador Promotional Model: ?None ? Anesthesia: IV sedation Estimated blood loss: ?Minimal FINDINGS AND PROCEDURE: ? OPERATIVE INDICATIONS: ?The patient is a 52 year old female with a history of laparoscopic gastric bypass at [facility] by Dr. Wilcox, who presented to the ED with persistent abdominal epigastric pain. The patient was referred to us for evaluation.? Based on this information I recommended an upper endoscopy to evaluate the patient's symptoms and rule out an anastomotic ulcer. Risks and complications of the surgery were discussed with the patient in advance particularly the possibility of perforation or bleeding that may require surgical intervention. The patient understood the risks and was in agreement with the plan. ? PROCEDURE: After informed consent was obtained by the patient, the patient was ?transferred to the Operating Room and was placed in the supine position.? After successful induction of IV sedation, a mouth block was placed and the patient was placed in the left lateral decubitus position. An upper endoscopy was performed next, the oropharynx and esophagus appeared within the normal limits. There was no hiatal hernia.? The z-line was smooth. The small pouch was entered, appeared to be of normal size. There was mild lateral redundancy. There was no gastritis and the gastrojejunostomy was patent. A biopsy was obtained from the gastric pouch. No significant bleeding was noted from any of the biopsy sites. There were several small and superficial anastomotic ulcers within 2-3 inches distally from the GJ anastomosis. At that point the scope was advanced into the proximal small intestine (proximal Lima limb) up to 55cm from incisors, which appeared to be normal as well. The Lima limb and the pouch were decompressed and the scope was withdrawn from the patient's mouth. The patient was awaken and was transferred in stable condition to the Recovery Room for further care. I was present and performed all steps of the procedure. There were no residents to assist with this case. Jamie Simpson M.D., Ph.D. Surgeon: Jeffrey Simpson MD Anesthesia: MAC Was an Brand Ambassador Promotional Model used for this Procedure?: No Estimated blood loss (mL): 0 IV fluids (mL): 400 Urine output (mL): 0 (No Haile to record output) Pathology: other (Gastric pouch x1) Condition: stable Disposition: PACU
[2023-11-17 07:55] VITALS: BP 92/45; PULSE 67; RESP 12; TEMP 36.6; O2SAT 99
[2023-11-17 08:10] VITALS: BP 127/58; PULSE 56; RESP 16; TEMP 36.7; O2SAT 100
--- NOTE | 2023-11-17 08:42 | PC.NURSE ---
patient aware of all specific instructions given by doctor and has copy.
== END 2023-11-17 08:42 | disposition home or self-care (01) ==
PROVIDERS: PCP Internal Medicine; Visit Provider Surgery
PROC: 0DJ08ZZ Inspection of Upper Intestinal Tract, Via Natural or Artificial Opening Endoscopic (ICD-10-PCS; CPT 43235; principal; 2023-11-17 07:30)
DX: R10.12 Left upper quadrant pain (principal); K28.9 Gastrojejunal ulcer, unspecified as acute or chronic, without hemorrhage or perforation; Z98.84 Bariatric surgery status; Z90.49 Acquired absence of other specified parts of digestive tract; Z88.2 Allergy status to sulfonamides; Z88.1 Allergy status to other antibiotic agents
CPT/HCPCS: 43239; 88305; 88313; 88342; J2250; J2704

== ENCOUNTER → 2023-11-17 06:04 | Outpatient (BNV) | payer OTHER, SELFPAY | PROVIDERS: PCP Internal Medicine; Visit Provider Surgery | DX: K28.9 Gastrojejunal ulcer, unspecified as acute or chronic, without hemorrhage or perforation (principal); Z98.84 Bariatric surgery status | CPT/HCPCS: 43239 ==

== ENCOUNTER 2023-11-22 13:30 | Outpatient (AMB) | payer OTHER, SELFPAY ==
--- NOTE | 2023-11-22 09:08 | MHC.OFFVISWM ---
Intake VS Expanded 11/22/23 09:10 Height 5 ft 4 in Weight 163 lb 9.6 oz BMI 28.1 Intake Visit Reasons: TV PO GBP 06/05/04 Allergies cefaclor [From Ceclor] Allergy (Verified 10/25/23 18:37) Rash Sulfa (Sulfonamide Antibiotics) Allergy (Verified 10/25/23 18:37) Unknown HPI HPI Comments History of Present Illness Details 52-year-old female returns to the office today in follow-up. She has a history of gastric bypass performed at [facility] in 2003, Dr Wilcox. She presented to the emergency department early this year with persistent upper abdominal pain. Recommendation was for upper endoscopy. She was found to have several small superficial ulcers and recommendation was for pantoprazole twice daily for 14 days and Carafate for 3 months. Weight today is 163.6 lb with a BMI of 28.1. Upper endoscopy performed by Dr Simpson on 11/17/23: The oropharynx and esophagus appeared within the normal limits. There was no hiatal hernia.? The z-line was smooth. The small pouch was entered, appeared to be of normal size. There was mild lateral redundancy. There was no gastritis and the gastrojejunostomy was patent. A biopsy was obtained from the gastric pouch. No significant bleeding was noted from any of the biopsy sites. There were several small and superficial anastomotic ulcers within 2-3 inches distally from the GJ anastomosis. At that point the scope was advanced into the proximal small intestine (proximal Lima limb) up to 55cm from incisors, which appeared to be normal as well. The Lima limb and the pouch were decompressed and the scope was withdrawn from the patient's mouth. She is taking the pantoprazole as she had a reaction to the sucralfate. Feelings of a weird feeling of throat and tongue. She also has a known sensitivity to to whey protein. She stopped the whey protein Celebrate rebuild wednesday and started a plant based protein shake ([employer] protein shake, 24 gm per scoop). She feels as though the feelings of the throat have improved although she feels as though something is stuck in the back of her throat. [facility] meal plan by Dr Varela: celebrate rebrakesh, 1 scoop 8-10, 11-1, 2-4, 5-7 2 scoops 8-10 pm [facility] Medical History (Updated 11/17/23 @ 08:23 by Jeffrey Simpson MD) Anastomotic ulcer Surgical History Hx of LASIK History of bunionectomy History of cholecystectomy History of tonsillectomy Hx of gastric bypass Social History Patient Tobacco Use Status: Never used Tobacco Assessment & Plan Assessment & Plan (1) Anastomotic ulcer: Code(s): K28.9 - Gastrojejunal ulcer, unspecified as acute or chronic, without hemorrhage or perforation Plan: Patient had what is possibly an allergic reaction to the sucralfate which she felt as a tingling sensation to her tongue and throat. She has not sure if it was that or the whey protein but she stopped both and the feeling improved. She switch to a protein powder called burred man which is 24 g of protein per scoop. She was reporting a sensation of globus although had been drinking her shake quickly. She was educated about the need to drink slowly over the 2 hour period. new meal plan: 8-10, 11-1, 2-4, 5-7, 8-10 all 1/2 scoop, 2 or 3 with water She will communicate new plan with Dr Varela and f/u with him or me Telehealth Telehealth Location of provider rendering services: practice address Location of patient: address on file Patient Identification confirmed using: Name, : Yes Telehealth method: voice only Patient verbally consented to treatment: Yes Patient verbally consented to billing insurance company: Yes Patient informed of any privacy concerns related to visit: Yes Minutes spent on Phone/Video with Pt.: 15 Coding Level of Care Code Tele Est Pt Level 3 (77477) Diagnoses Anastomotic ulcer K28.9 Time Spent (min) 20
[2023-11-22 09:10] VITALS: BMI 28.1
== END 2023-11-22 14:23 | disposition home or self-care (01) ==
LOC: HO.HBS 14:22
PROVIDERS: PCP Internal Medicine; Visit Provider Physician Assistant Surgical
DX: K28.9 Gastrojejunal ulcer, unspecified as acute or chronic, without hemorrhage or perforation (principal); Z98.84 Bariatric surgery status
CPT/HCPCS: 99442

== ENCOUNTER → 2023-11-22 13:30 | Outpatient (BNVA) | payer OTHER, SELFPAY | PROVIDERS: PCP Internal Medicine; Visit Provider Physician Assistant Surgical ==

== ENCOUNTER 2023-12-06 08:02 | Outpatient (REF) | payer OTHER, SELFPAY ==
--- NOTE | ~2023-12-06 | MR_ITS ---
EXAMINATION: MR BREAST WITHOUT AND WITH CONTRAST, BILATERAL CLINICAL INFORMATION: 53-year-old patient with family history of breast cancer in mother sister 2 maternal aunts and a paternal grandmother. COMPARISON: Breast MRI 12/01/2022, 11/26/2021 TECHNIQUE: Imaging was performed with a dedicated breast coil. Prior to the administration of contrast, bilateral axial T1 and bilateral axial T2 weighted sequences were obtained. After the uneventful administration of?7 mL of Gadavist, dynamic contrast-enhanced VIBRANT series through the breasts in the axial plane were performed. Subtracted images were performed and reviewed. A delayed sagittal sequence through both breasts was acquired. Additionally, CAD post-processing, including maximum intensity projections, 3-D reconstructions and kinetic analysis, were performed an independent workstation and reviewed by the interpreting radiologist is a portion of this exam. FINDINGS: The composition of the breasts is of scattered fibroglandular tissues. The patient's fibroglandular tissue demonstrates mild background enhancement. LEFT BREAST: No suspicious masslike or non-masslike enhancement. No abnormal skin thickening or nipple retraction. No abnormal architectural distortion. Review of the T2 weighted images demonstrates no fibrocystic changes or dilated ducts. Review of kinetic images reveals no additional findings. RIGHT BREAST: No suspicious masslike or non-masslike enhancement. No abnormal skin thickening or nipple retraction. No abnormal architectural distortion. Review of the T2 weighted images demonstrates no fibrocystic changes or dilated ducts. Review of kinetic images reveals no additional findings. There is no suspicious internal mammary chain or axillary adenopathy. Limited views of the chest and abdomen are unremarkable. MR/MR breast BI wo/w con IMPRESSION: No MR specific evidence of malignancy. ASSESSMENT: LEFT BREAST: BI-RADS 1-Negative RIGHT BREAST: BI-RADS 1-Negative RECOMMENDATIONS: Recommend annual breast MRI if lifetime risk of breast cancer is greater than 20%. Recommend annual mammogram.
[2023-12-06] MEDS: gadobutroL 7.5 ML VIAL IVPUSH (08:55)
== END 2023-12-06 08:03 | disposition home or self-care (01) ==
LOC: HO.MRI 08:02
PROVIDERS: PCP Internal Medicine; Visit Provider Obstetrics & Gynecology
DX: Z12.39 Encounter for other screening for malignant neoplasm of breast (principal); Z80.3 Family history of malignant neoplasm of breast
CPT/HCPCS: 77049; A9585

== ENCOUNTER 2023-12-08 12:45 | Day surgery (SDC) | payer OTHER, SELFPAY ==
--- NOTE | 2023-12-07 10:59 | HO.ANESPROP2 ---
Documented by User: Zoya Ricardo NP 12/07/23 10:59 HPI - Anesthesia Eval Consult details Narrative: 53yo F for Upper Endoscopy PMFSH Active Problems Active Problems: All Active Problems (Updated 11/17/23 @ 08:23 by Jeffrey Simpson MD) Anastomotic ulcer (Acute) Past Medical History Medical History (Updated 11/17/23 @ 08:23 by Jeffrey Simpson MD) Anastomotic ulcer Family History Family history of problems with anesthesia: No Surgical History Surgical History Hx of LASIK History of bunionectomy History of cholecystectomy History of tonsillectomy Hx of gastric bypass History of Problems with Anesthesia: No Social History Social History Patient Tobacco Use Status: Never used Tobacco Use of substances other than those prescribed or required for medical reasons: No Are you DNR?: No Advance Directives: No Advance Directives Information Provided: Yes Meds Allergies Allergy/AdvReac Type Severity Reaction Status Date / Time cefaclor [From Ceclor] Allergy Rash Verified 10/25/23 18:37 Sulfa (Sulfonamide Allergy Unknown Verified 10/25/23 18:37 Antibiotics) Assessment and Plan Assessment Anesthesia Assessment: Chart Reviewed Final Anesthetic Review Family History of Problems with Anesthesia: No History of Problems with Anesthesia: No Documented by User: Tiffanie Hernandez MD 12/08/23 14:36 PMFSH Past Medical History Medical History (Updated 11/17/23 @ 08:23 by Jeffrey Simpson MD) Anastomotic ulcer Surgical History Surgical History Hx of LASIK History of bunionectomy History of cholecystectomy History of tonsillectomy Hx of gastric bypass Social History Social History Patient Tobacco Use Status: Never used Tobacco Use of substances other than those prescribed or required for medical reasons: No Are you DNR?: No Advance Directives: No Advance Directives Information Provided: Yes Meds Allergies Allergy/AdvReac Type Severity Reaction Status Date / Time cefaclor [From [facility]] Allergy Rash Verified 10/25/23 18:37 Sulfa (Sulfonamide Allergy Unknown Verified 10/25/23 18:37 Antibiotics) Exam Airway Mallampati Class: II TM Dist: >3cm Neck ROM: Full Assessment and Plan Assessment Anesthesia Assessment: Anesthesia Plan Discussed Final Anesthetic Review NPO: Yes ASA Class: II Final Preanesthetic Review: No Changes in Pt Med Stat, Meds/Allgs Chart Reviewed, Consent Obtained/Reviewed and Anes Risks/Benef Reviewed Patient Risk: Low Procedure Risk: Low Anesthetic Plan Anesthetic Plan: TIVA Disposition: Standard PACU
[2023-12-08 14:18] VITALS: BMI 27.5
[2023-12-08 14:21] VITALS: BP 118/36; PULSE 63; RESP 18; TEMP 36.6; O2SAT 100
[2023-12-08] MEDS: Lactated Ringers 1,000 ML 80 ML IVCONT (14:39)
--- NOTE | 2023-12-08 14:55 | P.HPSUR_ITS ---
Pre-Procedural Eval Section A - 24 Hr Update-Section A only Date of Service: 12/08/23 The patient is an INPATIENT: No The patient has been examined within 24 hours of the surgical procedure. The History & Physical has been completed within 30 days and I have reviewed it.: Yes Section B - Complete if H&P > 30 days Chief Complaint: Gastrojejunal ulcer, unspecified as acute or chron Relevant Family History (Specify if Yes): No Relevant Social History: None Present Medications: None Medical History: No relevant PMH History of Previous Operations: Relevant previous surgery/procedure and date(s) (Laparoscopic gastric bypass) Allergies: Allergies Allergy/AdvReac Type Severity Reaction Status Date / Time [facility] [[facility]] Allergy Rash Verified 10/25/23 18:37 Sulfa (Sulfonamide Allergy Unknown Verified 10/25/23 18:37 Antibiotics) Review of Systems Sugical H&P ROS: Negative: Constitution, Cardiovascular, Respiratory, Neurological, Psychiatric, Hem-Onc, Allergic/Immunologic, Gastrointestinal, G enitourinary, Musculoskeletal, Integumentary, Endocrine and Eyes/Ears/Nose/Throat Exam Surgical H&P Exam: Normal: HEENT, Normal: Heart, Normal: Lungs, Normal: Extremities, Normal: Abdomen, Normal: Skin and Normal: Neurological Plan Diagnosis/Plan: Unchanged (EGD to assess the status of the anastomotic ulcers. Risks of bleeding and perforation were discussed with the patient and she is in agreement with the plan.) I have reviewed the history and physical and performed a pertinent physical examination on my patient. No changes have occurred unless specified. Time Spent With Patient Time: Total time managing care of this patient today ____ minutes.
--- NOTE | 2023-12-08 14:57 | P.BOP_ITS ---
Brief Operative Note Date of Service: 12/08/23 Pre-op diagnosis: Anastomotic ulcers Procedure: PROCEDURE DATE: ?12/08/23 PREOPERATIVE DIAGNOSIS: Anastomotic ulcers, s/p gastric bypass POSTOPERATIVE DIAGNOSIS: ?Same as above. 1) Healed anastomotic ulcers PROCEDURE: [id number] with biopsy Surgeon: ?Jamie Simpson M.D.. Ph.D. Specialty Person: ?None ? Anesthesia: IV sedation Estimated blood loss: ?Minimal FINDINGS AND PROCEDURE: ? OPERATIVE INDICATIONS: ?The patient is a 52 year old female with a history of laparoscopic gastric bypass at [facility] by Dr. Wilcox, who presented to the ED with persistent abdominal epigastric pain. The patient was referred to us for evaluation.?An endoscopy was performed in October which revealed several superficial anastomotic ulcers. The patient received appropriate treatment and she presents today for a follow-up endoscopy. Risks and complications of the surgery were discussed with the patient in advance particularly the possibility of perforation or bleeding that may re quire surgical intervention. The patient understood the risks and was in agreement with the plan. ? PROCEDURE: After informed consent was obtained by the patient, the patient was ?transferred to the Operating Room and was placed in the supine position.? After successful induction of IV sedation, a mouth block was placed and the patient was placed in the left lateral decubitus position. An upper endoscopy was performed next, the oropharynx and esophagus appeared within the normal limits. There was no hiatal hernia.? The z-line was smooth. The small pouch was entered, appeared to be of normal size. There was mild lateral redundancy. There was no gastritis and the gastrojejunostomy was patent. The previous small and superficial anastomotic ulcers were healed. At that point the scope was advanced into the proximal small intestine (proximal Lima limb) up to 55cm from incisors, which appeared to be normal as well. The Lima limb and the pouch were decompressed and the scope was withdrawn from the patient's mouth. The patient was awaken and was transferred in stable condition to the Recovery Room for further care. I was present and performed all steps of the procedure. There were no residents to assist with this case. Jamie Simpson M.D., Ph.D. Surgeon: Jeffrey Simpson MD Anesthesia: MAC Was an Specialty Person used for this Procedure?: No Estimated blood loss (mL): 0 IV fluids (mL): 400 Urine output (mL): 0 (No Haile to record output) Pathology: none sent Condition: stable Disposition: PACU
[2023-12-08 15:16] VITALS: BP 109/37; PULSE 69; RESP 16; TEMP 36.2; O2SAT 98
[2023-12-08 15:31] VITALS: BP 121/56; PULSE 80; RESP 16; TEMP 36.1; O2SAT 100
== END 2023-12-08 15:46 | disposition home or self-care (01) ==
PROVIDERS: PCP Internal Medicine; Visit Provider Surgery
PROC: 0DJ08ZZ Inspection of Upper Intestinal Tract, Via Natural or Artificial Opening Endoscopic (ICD-10-PCS; CPT 43235; principal; 2023-12-08 14:50)
DX: K28.9 Gastrojejunal ulcer, unspecified as acute or chronic, without hemorrhage or perforation (principal); Z98.84 Bariatric surgery status; Z79.899 Other long term (current) drug therapy; Z88.2 Allergy status to sulfonamides; Z88.8 Allergy status to other drugs, medicaments and biological substances; Z90.49 Acquired absence of other specified parts of digestive tract
CPT/HCPCS: 43239; J2250; J2704

== ENCOUNTER → 2023-12-08 12:45 | Outpatient (BNV) | payer OTHER, SELFPAY | PROVIDERS: PCP Internal Medicine; Visit Provider Surgery | DX: K25.9 Gastric ulcer, unspecified as acute or chronic, without hemorrhage or perforation (principal); Z98.84 Bariatric surgery status | CPT/HCPCS: 43235 ==